=== PATIENT | female | born 1990 | race Caucasian/White ===

== ENCOUNTER 2016-08-19 08:47 | Emergency (ER) | payer OTHER ==
[2016-08-19 08:57] VITALS: BP 114/70
--- NOTE | 2016-08-19 09:31 | Emergency Department Report ---
ED Female HPI - General Chief complaint: Skin/Abscess/Foreign Body Stated complaint: TAMPON STUCK/VAGINAL AREA Time Seen by Provider: 08/19/16 09:21 Source: patient, family Mode of arrival: Ambulatory Limitations: No Limitations - History of Present Illness Initial comments: Patient here reporting that she has got tampon stuck in her vaginal area for unknown days. Denies any vaginal bleeding or discharge. Reports vaginal discomfort at 6 out of 10. Denies any nausea vomiting or diarrhea. `Denies any abdominal or back pain. Has any fever or chills. She does not have any concern for STD. Has any urinary burning frequency or urgency. Patient reports that she pulled tampon out and she thinks that there is up part of it left in side. MD Complaint: other (tampon in vagina) -: unknown Location: other (vagina) Severity: moderate Severity scale (0 -10): 6 (discomfort) Quality: other (discomfort) Consistency: intermittent Improves with: none Worsens with: none Are you Now?: No Associated Symptoms: denies: vaginal discharge, vaginal bleeding, abdominal pain , nausea/vomiting, fever/chills, headaches, loss of appetite, dysuria, hematuria , rash, seizure, shortness of breath, syncope, weakness - Related Data Sexually active: Yes Home Medications Medication Instructions Recorded Confirmed Last Taken Dextroamphetamine/Amphetamine 1 tab PO DAILY 08/19/16 08/19/16 08/19/16 [Adderall] PROzac 20 mg PO DAILY 08/19/16 08/19/16 08/18/16 Sertraline [Zoloft] 25 mg PO QDAY 08/19/16 08/19/16 08/18/16 Allergies Allergy/AdvReac Type Severity Reaction Status Date / Time No Known Allergies Allergy Unverified 08/19/16 08:52 ED Review of Systems ROS: Stated complaint: TAMPON STUCK/VAGINAL AREA Other details as noted in HPI Comment: All other systems reviewed and negative Constitutional: denies: chills, fever Respiratory: no symptoms reported Cardiovascular: denies: chest pain, palpitations Gastrointestinal: denies: abdominal pain, nausea, vomiting, diarrhea, constipation Genitourinary: other (tampon in vagina). denies: urgency, dysuria, frequency, hematuria, discharge Musculoskeletal: denies: back pain, arthralgia Skin: denies: rash Neurological: denies: headache ED Past Medical Hx - Past Medical History Previous Medical History?: Yes Hx Psychiatric Treatment: Yes (depression. ADHD, Bipolar disorder) Additional medical history: Anemia - Surgical History Past Surgical History?: Yes Additional Surgical History: tubaligation - Family History Family history: no significant - Social History Smoking Status: Current Every Day Smoker Substance Use Type: Prescribed - Medications Home Medications: Home Medications Medication Instructions Recorded Confirmed Last Taken Type Dextroamphetamine/Amphetamine 1 tab PO DAILY 08/19/16 08/19/16 08/19/16 History [Adderall] PROzac 20 mg PO DAILY 08/19/16 08/19/16 08/18/16 History Sertraline [Zoloft] 25 mg PO QDAY 08/19/16 08/19/16 08/18/16 History ED Physical Exam - General Limitations: No Limitations General appearance: alert, in no apparent distress - Head Head exam: Present: atraumatic, normocephalic, normal inspection - Respiratory Respiratory exam: Present: normal lung sounds bilaterally. Absent: respiratory distress - Cardiovascular Cardiovascular Exam: Present: regular rate, normal rhythm, normal heart sounds - GI/Abdominal GI/Abdominal exam: Present: soft, normal bowel sounds. Absent: distended, tenderness, guarding, rebound, rigid - Rectal Rectal exam: Present: normal inspection - External exam: Present: normal external exam. Absent: erythema, swelling, lesions, lacerations, ecchymosis, bleeding Speculum exam: Present: vaginal bleeding (scants amount of bleeding coming from her cervical os). Absent: erythema, vaginal discharge, cervical discharge, foreign body, tissue, laceration Bi-manual exam: Present: normal bi-manual exam. Absent: cervical motion tendernes, adnexal tenderness, adnexal mass, uterine enlargement, uterine tenderness - Extremities Exam Extremities exam: Present: normal inspection, full ROM, normal capillary refill - Back Exam Back exam: Present: normal inspection, full ROM. Absent: tenderness, CVA tenderness (R), CVA tenderness (L), muscle spasm, paraspinal tenderness, vertebral tenderness, rash noted - Neurological Exam Neurological exam: Present: alert, oriented X3, normal gait - Psychiatric Psychiatric exam: Present: normal affect, normal mood - Skin Skin exam: Present: warm, dry, intact, normal color. Absent: rash ED Course Vital Signs 08/19/16 08:54 Temperature 98.8 F Pulse Rate 75 Respiratory 18 Rate Blood Pressure 114/70 O2 Sat by Pulse 100 Oximetry - Reevaluation(s) Reevaluation #1: 08/19/16 09:35 Uneventful Reevaluation #2: 08/19/16 10:02 Normal abdominal exam and vaginal exam. No adnexal tenderness and no cervical motion tenderness - Procedure Description Procedures done: Foreign body vagina: Pelvic exam done. External vaginal area without rash or lesion. No signs of inflammation. Internal vaginal owens well rugated. Pelvic exam. Exploration for foreign body. No foreign bodies seen. Cervix is pink with small amount of bleeding from on his due to menstruation. No lesions or rash. No discharge seen. No odor. Patient tolerated procedure well. ED Medical Decision Making - Medical Decision Making ED course: See procedure note for details. here reports that she thinks that there is partial tampon left in vagina. I explored vagina via Speculum and instrumentation. No tampon found. I discussed with patient that if she noticed an odor over the next couple days coming from vaginal area to return to the emergency room. She voices understanding. Patient discharged home in stable condition. Critical care attestation.: If time is entered above; I have spent that time in minutes in the direct care of this critically ill patient, excluding procedure time. ED Disposition Clinical Impression: Foreign body in vulva and vagina, initial encounter Qualifiers: Encounter type: initial encounter Qualified Code(s): T19.2XXA - Foreign body in vulva and vagina, initial encounter Disposition: DISCHARGED TO HOME OR SELFCARE Is pt being admited?: No Does the pt Need Aspirin: No Condition: Stable Instructions: Vaginal Foreign Body (ED) Additional Instructions: No foreign body found in ER vaginal area. Please return to emergency room if you develop ordered a vaginal area over the next couple days. Please refrain from putting tampon in vaginal area. Practice safe sex. You may also follow up with [facility]. See referral in discharge instruction paperwork Referrals: [facility] [Provider Group] - 08/21/16 [facility] [Outside] - 08/21/16 Forms: Accompanied Note, Work/School Release Form(ED)
== END 2016-08-19 10:24 | disposition home or self-care (01) ==
LOC: ED 08:47
DX: T19.2XXA Foreign body in vulva and vagina, initial encounter (principal); F17.200 Nicotine dependence, unspecified, uncomplicated; Y92.9 Unspecified place or not applicable
CPT/HCPCS: 99283